=== PATIENT | male | born 1940 | race Caucasian/White ===

== ENCOUNTER 2023-02-10 10:33 | Outpatient (AMB) | payer MEDICARE, SELFPAY ==
--- NOTE | 2023-02-10 10:47 | A.SPINEOV_ITS ---
Intake Intake Visit Reasons: back pain Intake Note: Mr. Winkler is here today c/o Right-sided low back pain starting at right buttock radiating down right leg. MRI done @ [facility]/brought disc. Health Data Analyst Required: No Assessment & Plan Assessment & Plan (1) Lumbar stenosis with neurogenic claudication: Code(s): M48.062 - Spinal stenosis, lumbar region with neurogenic claudication Plan Dear colleague Thank you for referring Shahbaz Winkler to the office today with a chief complaint of right leg pain. HPI: This 82-year-old male developed severe, right-sided, radiating pain to his hip down his posterior thigh with walking several months ago. Symptom was debilitating. He constantly has to sit down or lean forward on a shopping cart. Currently, the symptoms have improved in the sense that he is able to walk for longer distances before the symptoms starts. He denies weakness or numbness. He completed a course of physical therapy and was evaluated by Dr. Forrester, who referred him to my office. 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 Nonsmoker Physical Exam: Pleasant male. He is able to ambulate without difficulties. Neurological exam is intact for motor, sensation and reflexes. Straight leg raise is negative bilaterally. Radiological Studies: MRI done at [facility] shows a mild degenerative scoliosis and severe lateral recess stenosis L3-4 compressing the right L4 nerve root. A standing x-ray today confirms the lumbar degenerative scoliosis with the apex at L2-3. 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 Impression/Plan: This patient is suffering from unilateral neurogenic claudication on the right side due to L3-4 lateral recess stenosis. We dis cussed an L3-4 hemilaminotomy to treat his symptoms. He is interested but 1st wanted to complete further conservative management. Therefore I referred him to for an epidural steroid injection. I will follow-up in 3-6 weeks after the injection. Thank you for allowing me to participate in your patients care. total time spent was 50 minutes in counseling ,coordination of plan, personal review of imaging, surgical decision making and subsequent plan Dawson Velazquez MD, PhD Spine Fellowship Trained Neurosurgeon Director, [facility] Orders: Orders XR lumbar spine 4V min Today M48.062 - Spinal stenosis, lumbar region with neurogenic claudication Referrals Physiatry Referral M48.062 - Spinal stenosis, lumbar region with neurogenic claudication Coding Level of Care Code New Pt Level 4 (86234) Diagnoses Lumbar stenosis with neurogenic claudication M48.062
== END 2023-02-10 11:55 | disposition home or self-care (01) ==
PROVIDERS: PCP Internal Medicine; Visit Provider Neurological Surgery
DX: M48.062 Spinal stenosis, lumbar region with neurogenic claudication (principal)
CPT/HCPCS: 99204

== ENCOUNTER 2023-02-10 10:33 | Outpatient (REF) | payer MEDICARE, SELFPAY ==
--- NOTE | ~2023-02-10 | XR_ITS ---
EXAMINATION: XR LUMBOSACRAL SPINE WITH OBLIQUES CLINICAL INFORMATION: Neurogenic claudication COMPARISON: None available. TECHNIQUE: 4 views of the lumbar spine FINDINGS: No acute visible fracture or dislocation. Grade 1 retrolisthesis of L1 and L2 and L2 on L3, slightly increased on extension views. Multilevel degenerative changes. Vertebral body heights and disc spaces are maintained. Posterior elements are intact. Paraspinal soft tissues are unremarkable. Bowel gas is unremarkable. XR/XR lumbar spine 4V min IMPRESSION: 1. No acute visible fracture or dislocation. 2. Grade 1 retrolisthesis of L1 and L2 and L2 on L3, slightly increased on extension views. 3. Multilevel degenerative changes.
== END 2023-02-10 10:34 | disposition home or self-care (01) ==
LOC: HO.HOSX 10:33
PROVIDERS: PCP Internal Medicine; Visit Provider Neurological Surgery
DX: M48.062 Spinal stenosis, lumbar region with neurogenic claudication (principal)
CPT/HCPCS: 72110; 99202

== ENCOUNTER 2023-04-28 11:10 | Outpatient (AMB) | payer MEDICARE, SELFPAY ==
--- NOTE | 2023-04-28 11:16 | A.OFFVIS_ITS ---
Intake Intake Visit Reasons: 6 week f/u after referral Manager Shell Required: No Assessment & Plan Assessment & Plan (1) Lumbar stenosis with neurogenic claudication: Code(s): M48.062 - Spinal stenosis, lumbar region with neurogenic claudication Plan Dear colleague, On 04/28/2023, I saw for follow-up Shahbaz Winkler. He suffering from neurogenic claudication. We decided to refer him for an injection before consideration a right L3-4 hemilaminotomy. The injection provided great relief but he continues to have a pain in his buttock with walking and standing. I advised him to request a 2nd injection and if this does not do the trick to come back to my office to discuss a surgical decompression of the nerve root. Thank you for allowing me take care of your patient. Dawson Velazquez MD, PhD Spine Fellowship Trained Neurosurgeon Director, [facility] Coding Level of Care Code Est Pt Level 3 (26521) Diagnoses Lumbar stenosis with neurogenic claudication M48.062
== END 2023-04-28 12:16 | disposition home or self-care (01) ==
PROVIDERS: PCP Internal Medicine; Visit Provider Neurological Surgery
DX: M48.062 Spinal stenosis, lumbar region with neurogenic claudication (principal)
CPT/HCPCS: 99213

== ENCOUNTER → 2023-04-28 11:10 | Outpatient (BNVA) | payer MEDICARE, SELFPAY | PROVIDERS: PCP Internal Medicine; Visit Provider Neurological Surgery | DX: M48.062 Spinal stenosis, lumbar region with neurogenic claudication (principal) | CPT/HCPCS: 99212 ==

== ENCOUNTER 2023-06-30 13:12 | Outpatient (AMB) | payer MEDICARE, SELFPAY ==
--- NOTE | 2023-06-30 13:32 | HO.SPINEOV ---
Intake Intake Visit Reasons: back pain Intake Note: Mr. Winkler is here today c/o back pain Top Cleaner Required: No Assessment & Plan Assessment & Plan (1) Lumbar stenosis with neurogenic claudication: Code(s): M48.062 - Spinal stenosis, lumbar region with neurogenic claudication Plan Dear colleague, On June 30, 2023 I saw for follow-up Shahbaz Winkler. He is 82-year-old male who suffering from unilateral neurogenic claudication due to L3-4 lateral recess stenosis. I refer for details to my previous note. The epidural steroid injection wore off and the symptoms of right leg pain with walking and standing returned. Where an extensive discussion about surgery, being a right hemilaminotomy and expected postoperative course. This surgery is planned for 08/19/2023. He has getting a preoperative clearance tomorrow. He will see for another injection to hold him over until the surgical date. I spent 35 minutes in his consult to discuss the surgical plan. Thank you for letting me take care of your patient. Dawson Velazquez MD, PhD Spine Fellowship Trained Neurosurgeon Director, [facility] Coding Level of Care Code Est Pt Level 4 (26149) Diagnoses Lumbar stenosis with neurogenic claudication M48.062
== END 2023-06-30 14:23 | disposition home or self-care (01) ==
PROVIDERS: PCP Internal Medicine; Visit Provider Neurological Surgery
DX: M48.062 Spinal stenosis, lumbar region with neurogenic claudication (principal)
CPT/HCPCS: 99214

== ENCOUNTER → 2023-06-30 13:12 | Outpatient (BNVA) | payer MEDICARE, SELFPAY | PROVIDERS: PCP Internal Medicine; Visit Provider Neurological Surgery | DX: M48.062 Spinal stenosis, lumbar region with neurogenic claudication (principal) | CPT/HCPCS: 99212 ==

== ENCOUNTER 2023-08-19 09:15 | Day surgery (SDC) | payer MEDICARE, SELFPAY ==
[2023-08-05 13:13] VITALS: BP 136/77; PULSE 98; RESP 16; O2SAT 97; BMI 32.9
--- NOTE | 2023-08-05 13:35 | HO.ANESPROP2 ---
Documented by User: Mallorie Perez NP 08/16/23 15:17 HPI - Anesthesia Eval Consult details Narrative: 82yo M for Right L3-4 Lumbar decompression, 08/19/23 Medically optimized No recent illness No CP/SOB with limited activity DM. Does not check blood sugar at home. PMFSH Active Problems Active Problems: All Active Problems Lumbar stenosis with neurogenic claudication (Acute) Past Medical History Medical History Hx of squamous cell carcinoma Arthritis [place] (hard of hearing) Imbalance Peripheral neuropathy H/O macrocytosis Hx of Lyme disease (~2005) Diabetes Elevated cholesterol HTN (hypertension) Back pain History of trigger finger Family History Family history of problems with anesthesia: No Surgical History Surgical History Hx of colonoscopy Hx of Achilles tendon repair Hx of cataract extraction Hx of total knee replacement History of Problems with Anesthesia: No Social History Social History Are you a primary childcare center administrator to a significant other at home: No Do you presently have visiting nurse or other home services: No Patient Tobacco Use Status: Former Tobacco user Quit Date: Tobacco use type: Cigarette Use of substances other than those prescribed or required for medical reasons: No Have you been hit, kicked, punched, or otherwise hurt by someone within the past year? If so, by whom?: No Are you DNR?: No Advance Directives: No Advance Directives Information Provided: Yes Advance Directives on File: No Nutrition Risks: Surgical patient >75years Poor oral hygiene: No Meds Allergies Allergy/AdvReac Type Severity Reaction Status Date / Time No Known Allergies Allergy Verified 08/05/23 13:13 Home Medications ?Medication ?Instructions ?Recorded ?Confirmed ?Last Taken ?Type amlodipine 5 mg tablet 5 mg PO BEDTIME 08/04/23 08/05/23 08/18/23 History atorvastatin 80 mg tablet 80 mg PO DAILY 08/04/23 08/04/23 08/18/23 History cyanocobalamin 1,000 1 tab PO DAILY 08/04/23 08/05/23 08/18/23 History mcg-salcaprozate sodium 100 mg tablet ezetimibe 10 mg tablet 10 mg PO DAILY 08/04/23 08/04/23 08/18/23 History metformin 500 mg tablet,extended 2,000 mg PO DAILY 08/04/23 08/05/23 08/18/23 History release 24 hr pioglitazone 30 mg tablet 30 mg PO DAILY 08/04/23 08/04/23 08/18/23 History vitamin B complex 1 tab PO DAILY 08/04/23 08/04/23 08/18/23 History acetaminophen 500 mg tablet 1,000 mg PO Q6H PRN Pain 08/05/23 08/05/23 08/18/23 History cholecalciferol (vitamin D3) 50 50 mcg PO DAILY 08/05/23 08/05/23 08/18/23 History mcg (2,000 unit) capsule (Vitamin D3) Exam Height,Weight and Vital Signs: Height 5 ft 9.5 in Weight 102.512 kg Last Vital Signs Pulse 98 08/05/23 13:13 Resp 16 08/05/23 13:13 BP 136/77 08/05/23 13:13 Pulse Ox 97 08/05/23 13:13 O2 Del Method Room Air 08/05/23 13:13 Pertinent Lab Results Pertinent Lab Results: CBC and BMP 07/2023 from outside facility WNL Narrative Narrative: EKG 06/2023 SR with SA with 1st deg AV block @ 65 Airway Mallampati Class: III TM Dist: >3cm Neck ROM: Full Loose/Missing/Broken Teeth: Yes (Molar pulled, crowned molar stable) Heart: RRR Lungs: CTAB Assessment and Plan Assessment Anesthesia Assessment: Anesthesia Plan Discussed and PAT Visit Final Anesthetic Review Family History of Problems with Anesthesia: No History of Problems with Anesthesia: No Documented by User: Zina Baig MD 08/19/23 11:04 [facility] Active Problems Active Problems: All Active Problems Lumbar stenosis with neurogenic claudication (Acute) H/o [place]. Has not used CPAP machine for years. States does not snore anymore NIDDM HTN Hypercholesterolemia [place] Increased BMI Past Medical History Medical History Hx of squamous cell carcinoma Arthritis [place] (hard of hearing) Imbalance Peripheral neuropathy H/O macrocytosis Hx of Lyme disease (~2005) Diabetes Elevated cholesterol HTN (hypertension) Back pain History of trigger finger Family History Family history of problems with anesthesia: No Surgical History Surgical History Hx of colonoscopy Hx of Achilles tendon repair Hx of cataract extraction Hx of total knee replacement History of Problems with Anesthesia: No Social History Social History Are you a primary childcare center administrator to a significant other at home: No Do you presently have visiting nurse or other home services: No Patient Tobacco Use Status: Former Tobacco user Quit Date: Tobacco use type: Cigarette Use of substances other than those prescribed or required for medical reasons: No Have you been hit, kicked, punched, or otherwise hurt by someone within the past year? If so, by whom?: No Are you DNR?: No Advance Directives: No Advance Directives Information Provided: Yes Advance Directives on File: No Nutrition Risks: Surgical patient >75years Poor oral hygiene: No Meds Allergies Allergy/AdvReac Type Severity Reaction Status Date / Time No Known Allergies Allergy Verified 08/05/23 13:13 Home Medications ?Medication ?Instructions ?Recorded ?Confirmed ?Last Taken ?Type amlodipine 5 mg tablet 5 mg PO BEDTIME 08/04/23 08/05/23 08/18/23 History atorvastatin 80 mg tablet 80 mg PO DAILY 08/04/23 08/04/23 08/18/23 History cyanocobalamin 1,000 1 tab PO DAILY 08/04/23 08/05/23 08/18/23 History mcg-salcaprozate sodium 100 mg tablet ezetimibe 10 mg tablet 10 mg PO DAILY 08/04/23 08/04/23 08/18/23 History metformin 500 mg tablet,extended 2,000 mg PO DAILY 08/04/23 08/05/23 08/18/23 History release 24 hr pioglitazone 30 mg tablet 30 mg PO DAILY 08/04/23 08/04/23 08/18/23 History vitamin B complex 1 tab PO DAILY 08/04/23 08/04/23 08/18/23 History acetaminophen 500 mg tablet 1,000 mg PO Q6H PRN Pain 08/05/23 08/05/23 08/18/23 History cholecalciferol (vitamin D3) 50 50 mcg PO DAILY 08/05/23 08/05/23 08/18/23 History mcg (2,000 unit) capsule (Vitamin D3) Exam Height,Weight and Vital Signs: Height 5 ft 9.5 in Weight 102.512 kg Last Vital Signs Pulse 98 08/05/23 13:13 Resp 16 08/05/23 13:13 BP 136/77 08/05/23 13:13 Pulse Ox 97 08/05/23 13:13 O2 Del Method Room Air 08/05/23 13:13 Vital Signs Temp Pulse Resp BP Pulse Ox O2 Del Method 08/19/23 09:18 97.3 F 82 19 142/87 H 95 Room Air Pertinent Lab Results Pertinent Lab Results: CBC and BMP 07/2023 from outside facility WNL Lab Results 08/19/23 Range/Units 10:48 POC Glucose 169 H (60-115) mg/dL Airway Mallampati Class: III TM Dist: >3cm Neck ROM: Full Loose/Missing/Broken Teeth: No Assessment and Plan Assessment Anesthesia Assessment: Anesthesia Plan Discussed, PAT Visit and Chart Reviewed Final Anesthetic Review Family History of Problems with Anesthesia: No History of Problems with Anesthesia: No NPO: Yes ASA Class: III Final Preanesthetic Review: No Changes in Pt Med Stat, Meds/Allgs Chart Reviewed, Consent Obtained/Reviewed and Anes Risks/Benef Reviewed Patient Risk: Intermediate Procedure Risk: Low Assessment/Block/Sedation in SS: Assess/Block/Sedation-SS Anesthetic Plan Anesthetic Plan: GA Disposition: Standard PACU
[2023-08-19] VITALS (10 sets, daily range): BP systolic 125–152; BP diastolic 63–88; PULSE 54–82; RESP 12–19; TEMP 36.2–36.3; O2SAT 82–95
--- NOTE | ~2023-08-19 | FL_ITS ---
EXAMINATION: XR FLUOROSCOPY WITH IMAGES CLINICAL INFORMATION: L3-L4 lumbar decompression. COMPARISON: Lumbar spine radiographs 02/10/2023. TECHNIQUE: Fluoroscopy Supervised By: Dr. Velazquez. Fluoroscopy Time: Less than 1 min. Cumulative Dose: 6.75 mGy. DAP: 1.44 Gycm2. Images: 1. FINDINGS: Intraoperative fluoroscopy and spot films were performed during a procedure in the OR. A probe is seen at the L3-L4 level. Please see Dr. Velazquez' report for complete details. FL/FL guidance in OR IMPRESSION: Intraoperative fluoroscopy and spot films were obtained. Please see Dr. Velazquez' report for complete details.
--- NOTE | 2023-08-19 07:04 | MHC.SHP ---
Pre-Procedural Eval Section A - 24 Hr Update-Section A only Date of Service: 08/19/23 The patient is an INPATIENT: No Changes since office visit: No Cold of Flu in the past 2 weeks, No New Medical Problems, No Changes in Medication and No Patient answered all questions The patient has been examined within 24 hours of the surgical procedure. The History & Physical has been completed within 30 days and I have reviewed it.: No Section B - Complete if H&P > 30 days Chief Complaint: Spinal stenosis, lumbar region with neurogenic Allergies: Allergies Allergy/AdvReac Type Severity Reaction Status Date / Time No Known Allergies Allergy Verified 08/05/23 13:13 Review of Systems Sugical H&P ROS: Negative: Constitution, Cardiovascular, Respiratory, Neurological, Psychiatric, Hem-Onc, Allergic/Immunologic, Gastrointestinal, Genitourinary, Musculoskeletal, Integumentary, Endocrine and Eyes/Ears/Nose/Throat Exam Surgical H&P Exam: Not Evaluated: HEENT, Not Evaluated: Heart, Not Evaluated: Lungs, Not Evaluated: Extremities, Not Evaluated: Abdomen, Not Evaluated: Skin and Not Evaluated: Neurological Plan Diagnosis/Plan: Unchanged right L3-4 hemilaminotomy Time Spent With Patient Time: Total time managing care of this patient today _4___ minutes.
[2023-08-19] MEDS: methocarbamoL 750 MG TABLET PO (09:38)
[2023-08-19] MEDS: Gabapentin 300 MG CAPSULE PO (09:38)
[2023-08-19] MEDS: Lactated Ringers 1,000 ML 100 ML IVCONT (09:38)
[2023-08-19 10:52] LABS: Glucose, Whole Blood 169 mg/dL (60-115)
--- NOTE | 2023-08-19 13:26 | P.OP_ITS ---
Operative Note Operative Note Date of Service: 08/19/23 Narrative: [address] [address] Operative Note Signed Patient: Karmen Caraballo MR#: [id number] : 05/20/1955 Acct:[id number] Age/Sex: 68 / F Loc: .[facility] Preoperative Diagnosis: Right L3-L4 Spinal stenosis/lateral recess stenosis/neural foraminal stenosis Operation: Right L3-L4 Laminotomy, Partial facetectomy and foraminotomy with use of microscope Consent Informed Consent was obtained for this operation. I have explained the nature, purpose and benefits of the operation. I have discussed the risks and benefit of the operation including possible complications or adverse events with patient/family. Alternative(s) were discussed with the patient with their relative benefits and risks as well as the consequences of not accepting the operation were included in obtaining consent. Surgeon: DALJIT KNIGHT MD, PHD Procedure Assisted By: ERIK Vasquez. Description of Procedure This patient is suffering from a right L4 radiculopathy due to an L3-4 lateral recess stenosis. The patient was offered a decompression of the nervous structures. The procedure complications were explained. The patient was consented. The patient was brought to the operating room and endotracheally intubated. The patient was turned in prone position on the Jonah frame. Prep and drape was done followed by timeout. Physician chemist assistant provided access. A mid lumbar incision was made followed by release of the paravertebral muscle on the right side to expose the right L3-4 lamina and facet joint. An intraoperative x-ray was obtained to confirm the correct level. The microscope was brought in. I took over the procedure. The high-speed drill was used to do a right L3-4 laminotomy. The flavum ligament was opened. The underlying L4 nerve root was identified as origin and followed along the medial off the pedicle into the foramen and was decompressed over its trajectory. Good pulsations were seen at the end of the decompression. Hemostasis was done. The microscope was removed. Hemostasis was done. Incision was closed in 2 layers. Steri-Strips were used to approximate incision. An OpSite with Tegaderm was used to cover the incision. All sponge needle counts were correct. Patient was extubated and transported in stable is to recovery room. Anesthesia: General Estimated Blood Loss (ml): Minimal Duration of Surgery: Under 40 Minutes Postoperative Plan: Discharge to home
--- NOTE | 2023-08-19 13:38 | P.DS_ITS ---
DS: Providers Provider Date of Service: 08/19/23 Primary care physician: Carlos Wheatley MD DS: Summary Time Attestation Discharge Coordination Time (in mins): 15 Quality: Safe Use of Opioids Does Pt have an Active Cancer Diagnosis on the Problem List?: No Quality: Stroke Does the patient have a stroke diagnosis?: No Physical Exam Vital Signs: Vital Signs: Last Vital Signs Temp 97.3 F 08/19/23 09:18 Pulse 82 08/19/23 09:18 Resp 19 08/19/23 09:18 BP 142/87 H 08/19/23 09:18 Pulse Ox 95 08/19/23 09:18 O2 Del Method Room Air 08/19/23 09:18 BMI result Body Mass Index 32.9 DS: Data Data Completed and Pending Labs on day of discharge: Laboratory Results - last 24 hr 08/19/23 10:48 POC Glucose 169 H Discharge Plan Discharge Patient Disposition: Home, Self-Care Referrals: Carlos hWeatley MD [Primary Care Provider] - 1 Week Discharge Medications: New oxycodone 5 mg tablet 5 mg PO Q6H PRN (Reason: severe pain (scale score 7-10)) Qty: 30 0RF Rx Instructions: Partial Fill upon patient request. Continued atorvastatin 80 mg tablet 80 mg PO DAILY vitamin B complex Tablet Extended Release 1 tab PO DAILY amlodipine 5 mg tablet 5 mg PO BEDTIME pioglitazone 30 mg tablet 30 mg PO DAILY metformin 500 mg tablet extended release 24 hr 2,000 mg PO DAILY ezetimibe 10 mg tablet 10 mg PO DAILY cyanocobalamin-salcaprozat sod 1,000-100 mcg-mg Tablet 1 tab PO DAILY acetaminophen 500 mg Tablet 1,000 mg PO Q6H PRN (Reason: Pain) cholecalciferol (vitamin D3) [Vitamin D3] 50 mcg (2,000 unit) Capsule 50 mcg PO DAILY Discharge Orders: Discharge Order (Routine); Ordered 08/19/23 Ordered By: Yuri Payne Diet: Advance to usual diet Activity on Discharge: As tolerated Activity Restrictions/Additional Instructions: After your spinal surgery we ask you to observe the following restrictions/guidelines: Activity: It is normal to feel some discomfort as you increase your activity, but that will improve with time. We ask you avoid heavy lifting or acitivities that cause pain. As a general rule, 8lbs is a safe limit for lifting right after surgery. Walk as much as you feel comfortable but not to exhaustion. You will feel extra tired the first few days after surgery. Stay well hydrated. It is OK to walk up and down stairs You may return to driving when you are off narcotics (such as vicodin, oxycodone, dilaudid, etc), and you are back to normal functional capacity. If you have any concerns please check with office before driving. Return to work is specific to each patient and each surgery, so please speak with your doctor/PA at first follow up. Please bring paperwork such as FMLA at that time if you need it filled out. Medications: We will give you a short supply of narcotics after surgery (usually one weeks worth). If you need more please call the office but do not use more than prescribed. You will need to give our office 48 hours notice if you need narcotics refilled and we do not fill narcotics on weekends or evenings. If you are on a narcotic, it is a good idea to take a stool softener such as colace or senna to avoid constipation If you take blood thinner such as aspirin, Plavix, Coumadin, Effient, Eliquis etc for conditions such as Afib, DVT, Pulmonary embolus, coronary disease, stents etc please speak with your surgeon about specific details as to when you can resume these medications. You can resume NSAIDs on post op day 1 (eg: Motrin, Naproxen, etc). Follow up: Please call the office, , after surgery to arrange a 3 week follow up for wound check. Wound Care: You may remove your dressing on the first day after surgery. ?You may ?leave open to air. Please do not remove the steri strips underneath. they will fall off on their own in one week. IT IS NORMAL FOR THE WOUND TO OOZE OR BE BLOODY FOR A FEW DAYS AFTER SURGERY. ?IF THIS HAPPENS JUST PLACE NEW DRESSING OVER IT TO AVOID STAINING CLOTHES. You may shower on post op day # 1 We ask that you do not let the water soak the wound. If it does get wet, just towel dry lightly. Please do not scrub your incision or place any type of chemical/ointment on the wound. No tub baths, pools or jacuzzis for one month. If you have any leaking or redness from your wound, or fevers, please call the office. Print Language: Kazakh
[2023-08-19] MEDS: fentaNYL citrate/PF 100 MCG/2 ML VIAL 25 MCG IVPUSH (14:50)
== END 2023-08-19 15:35 | disposition home or self-care (01) ==
PROVIDERS: PCP Internal Medicine; Visit Provider Neurological Surgery
PROC: (CPT 63047; principal; 2023-08-19 12:00)
DX: M48.062 Spinal stenosis, lumbar region with neurogenic claudication (principal); I10 Essential (primary) hypertension; G62.9 Polyneuropathy, unspecified; R26.89 Other abnormalities of gait and mobility; D75.89 Other specified diseases of blood and blood-forming organs; E11.9 Type 2 diabetes mellitus without complications; H91.93 Unspecified hearing loss, bilateral; Z79.84 Long term (current) use of oral hypoglycemic drugs; Z87.891 Personal history of nicotine dependence
CPT/HCPCS: 63047; 82947; J0131; J0690; J1100; J1596; J1885; J2250; J2405; J2704; J3010

== ENCOUNTER → 2023-08-19 09:15 | Outpatient (BNV) | payer MEDICARE, SELFPAY | PROVIDERS: PCP Internal Medicine; Visit Provider Neurological Surgery | DX: M48.062 Spinal stenosis, lumbar region with neurogenic claudication (principal) | CPT/HCPCS: 63047; 99499 ==

== ENCOUNTER 2023-09-09 09:53 | Outpatient (AMB) | payer MEDICARE, SELFPAY ==
--- NOTE | 2023-09-09 10:04 | HO.SPINEOV ---
Intake Visit Reasons: 1st post op Intake Note: Mr. Winkler is here today for his 1st post-op appointment. Petroleum Supply Specialist Required: No Allergies No Known Allergies Allergy (Verified 09/09/23 10:04) Assessment & Plan Assessment & Plan (1) Lumbar stenosis with neurogenic claudication: Code(s): M48.062 - Spinal stenosis, lumbar region with neurogenic claudication Category: Medical Plan Procedure: Right L3-L4 Laminotomy, Partial facetectomy and foraminotomy Shahbaz comes in today for his 1st postoperative visit. He reports he is very satisfied with the surgery and feels much better than he did preoperatively. The patient reports he is up walking around and completing the majority of his ADLs. He reports that he no longer suffers from his right-sided shooting radiculopathy. He still reports mild low back pain, with good relief with OTC pain medication. No new neurological deficits. Patient is able to ambulate well, with assistance of a cane rises from a seated position without difficulty. Posterior incision site is closed, well healing, with no signs of drainage. We will follow-up with the patient in 6 weeks for their 2nd postoperative visit. Yuri Velazquez MD,PhD [facility] Coding Level of Care Code Global (75194) Diagnoses Lumbar stenosis with neurogenic claudication M48.062
== END 2023-09-09 10:29 | disposition home or self-care (01) ==
PROVIDERS: PCP Internal Medicine; Visit Provider Physician Assistant
DX: M48.062 Spinal stenosis, lumbar region with neurogenic claudication (principal)
CPT/HCPCS: 99024

== ENCOUNTER → 2023-09-09 09:53 | Outpatient (BNVA) | payer MEDICARE, SELFPAY | PROVIDERS: PCP Internal Medicine; Visit Provider Physician Assistant | DX: Z48.89 Encounter for other specified surgical aftercare (principal) | CPT/HCPCS: 99212 ==

== ENCOUNTER 2023-10-25 11:30 | Outpatient (AMB) | payer MEDICARE, SELFPAY ==
--- NOTE | 2023-10-25 11:34 | HO.SPINEOV ---
Intake Visit Reasons: 2nd post op Intake Note: Mr. Winkler is here today for his 2nd post op visit Dictaphone Technician Required: No Allergies No Known Allergies Allergy (Verified 09/09/23 10:04) Assessment & Plan Assessment & Plan (1) Lumbar stenosis with neurogenic claudication: Code(s): M48.062 - Spinal stenosis, lumbar region with neurogenic claudication Category: Medical Plan: Operation: Right L3-L4 Laminotomy, Partial facetectomy and foraminotomy Shahbaz comes in today for a postoperative follow-up visit after having a L3-4 lumbar decompression completed on 08/19/2023. Unfortunately he continues to report low back pain, lumbar radiculopathy into his right hip and right posterior thigh, and neurogenic claudication. He states that there are times throughout the day where he has 0 pain, then he will try to ambulate somewhere and have severe pain exacerbations into his right posterior thigh. Today he ambulates with the use of a cane, which he did admit he was using prior to the surgery. He also states that he has to hold himself up on a grocery cart to get around the store, which he also admits he had to do prior to surgery. He is very concerned that he feels his symptoms have stayed the same with little to no improvement since his surgery. 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 No new neurological deficits. The patient ambulates with the assistance of a cane. His posterior incision site appears closed and well healed. I sent Shahbaz for a repeat set of x-rays, and discussed the possibility of subsequent surgical interventions to resolve his reported pain. I am not sure if Dr. Velazquez was willing to offer him any other surgery if more conservative treatments failed. many times we do treat degenerative scoliosis with lumbar fusion, however as stated above the patient is auto fused at the superior segment, and there is evidence of significant osteophyte growth on x-ray imaging. I would like him to follow up with Dr. Velazquez regarding. Yuri Velazquez MD,PhD [facility] Orders: Orders XR lumbar spine 4V min Today M48.062 - Spinal stenosis, lumbar region with neurogenic claudication Coding Level of Care Code Global (67692) Diagnoses Lumbar stenosis with neurogenic claudication M48.062
== END 2023-10-25 12:03 | disposition home or self-care (01) ==
PROVIDERS: PCP Internal Medicine; Visit Provider Physician Assistant
DX: M48.062 Spinal stenosis, lumbar region with neurogenic claudication (principal)
CPT/HCPCS: 99024

== ENCOUNTER 2023-10-25 11:30 | Outpatient (REF) | payer MEDICARE, SELFPAY ==
--- NOTE | ~2023-10-25 | XR_ITS ---
EXAMINATION: XR LUMBAR SPINE CLINICAL INFORMATION: Reason for Exam M48.062 - Spinal stenosis, lumbar region with neurogenic claudication COMPARISON: 2022 TECHNIQUE: Frontal lateral and coned-down L5-S1 frontal lateral, flexion and extension, 4 views FINDINGS: Five [id number] lumbar vertebrae were identified maintaining normal height, mild dextroscoliosis, mild grade 1 posterior spondylolisthesis of L2 on L3 and L3 on L4.. Loss of disc height and developed large osteophyte from the endplates suggests underlying severe degenerative disc disease. Paravertebral soft tissues are unremarkable. There are radiolucencies, most likely superimposed bowel gas.. No radiographic evidence of osteolytic or osteoblastic lesions. XR/XR lumbar spine 4V min IMPRESSION: * Progression of severe Degenerative disc disease, mild dextroscoliosis. * Mild grade 1 posterior spondylolisthesis of L2 on L3 and L3 on L4. * No fracture.
== END 2023-10-25 11:31 | disposition home or self-care (01) ==
LOC: HO.HOSX 11:30
PROVIDERS: PCP Internal Medicine; Visit Provider Physician Assistant
DX: M48.062 Spinal stenosis, lumbar region with neurogenic claudication (principal)
CPT/HCPCS: 72110; 99212

== ENCOUNTER 2023-12-01 15:03 | Outpatient (AMB) | payer MEDICARE, SELFPAY ==
--- NOTE | 2023-12-01 15:05 | HO.SPINEOV ---
Intake Visit Reasons: discuss possible future sx Intake Note: Mr. Winkler is here today to Discuss Surgery. Informatics Application Analyst Required: No Allergies No Known Allergies Allergy (Verified 12/01/23 15:07) Assessment & Plan Assessment & Plan (1) Left hip pain: Code(s): M25.552 - Pain in left hip Category: Medical Plan: Dear colleague, On 12/01/2023 I saw Shahbaz Winkler. He is status post L3-4 lumbar decompression for right-sided neurogenic claudication in August of 2023. Unfortunately, he reports no improvement. Another complaint today is left-sided hip pain which has been going on for longer time. On exam: Hip exam reveals mild left hip pain. No neurological deficits. An x-ray of the left hip is unremarkable. In summary, the patient continues to complain of neurogenic claudication despite decompression. I would like to repeat an MRI of the lumbar spine and follow-up to determine if there is a persistent surgical cause for his ongoing symptoms. I spent 25 minutes in his consult to review imaging and discussing plan of care. Thank you for allowing me take care of your patient. Dawson Velazquez MD, PhD Sp[facility] Trained Neurosurgeon Director, [facility] (2) Lumbar stenosis with neurogenic claudication: Code(s): M48.062 - Spinal stenosis, lumbar region with neurogenic claudication Category: Medical Plan: d Plan s Orders: Orders XR hip LT min 2V Today M25.552 - Pain in left hip MR lumbar spine wo/w con Today M48.062 - Spinal stenosis, lumbar region with neurogenic claudication Coding Level of Care Code Est Pt Level 3 (23420) Diagnoses Left hip pain M25.552 Lumbar stenosis with neurogenic claudication M48.062
== END 2023-12-01 15:53 | disposition home or self-care (01) ==
PROVIDERS: PCP Internal Medicine; Visit Provider Neurological Surgery
DX: M25.552 Pain in left hip (principal); M48.062 Spinal stenosis, lumbar region with neurogenic claudication
CPT/HCPCS: 99213

== ENCOUNTER 2023-12-01 15:03 | Outpatient (REF) | payer MEDICARE, SELFPAY ==
--- NOTE | ~2023-12-01 | XR_ITS ---
EXAMINATION: XR HIP, LEFT CLINICAL INFORMATION: Pain in the left hip. COMPARISON: None available. TECHNIQUE: AP and frog-leg lateral views of the left hip. FINDINGS: Moderate osteoarthritis in the left hip with cephalad joint space narrowing, marginal osteophytes, articular cortical irregularity, and articular sclerosis. Enthesopathic spurring at the left greater trochanter and ischium. No fractures. Alignment is appropriate. Atherosclerotic calcifications in the femoral arteries. 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 No acute osseous findings. Electronically signed by: Rusty Navarro MD 12/26/2023 10:38 AM EDT
== END 2023-12-01 15:04 | disposition home or self-care (01) ==
LOC: HO.HOSX 15:03
PROVIDERS: PCP Internal Medicine; Visit Provider Neurological Surgery
DX: M25.552 Pain in left hip (principal); M48.062 Spinal stenosis, lumbar region with neurogenic claudication
CPT/HCPCS: 73502; 99212

== ENCOUNTER 2023-12-24 15:19 | Outpatient (AMB) | payer MEDICARE, SELFPAY ==
--- NOTE | 2023-12-24 15:20 | HO.SPINEOV ---
Intake Visit Reasons: Discuss MRI results Intake Note: Mr. Winkler is here today to Discuss the results to his MRI. Graining Press Operator Required: No Allergies No Known Allergies Allergy (Verified 12/01/23 15:07) Assessment & Plan Assessment & Plan (1) Scoliosis of lumbar region due to degenerative disease of spine in adult: Code(s): M41.56 - Other secondary scoliosis, lumbar region Category: Medical (2) Lumbar stenosis with neurogenic claudication: Code(s): M48.062 - Spinal stenosis, lumbar region with neurogenic claudication Category: Medical Plan Dear colleague, On 12 24 2023, I saw for follow-up Shahbaz Winkler to discuss his MRI results. As you know he is status post L3-4 lumbar decompression but unfortunately he reported ongoing symptoms. The new MRI shows a good decompression at the surgical site. There is the ongoing degenerative scoliosis L2-3 and L3-4. I told the patient that a minimally invasive correction of the degenerative scoliosis could cure the remaining symptom. I wish I could guarantee him that this would be a definite solution but I can not. He is well aware of this and he decided not to proceed with anymore surgery. I gave him referral for physical therapy. He will returned to my office if new or more symptoms occur. Thank you for allowing me take care of the patient. Dawson Velazquez MD, PhD Spine Fellowship Trained Neurosurgeon Director, [facility] [place] [facility] Orders: Orders PT Evaluation and Treatment Today M41.56 - Other secondary scoliosis, lumbar region, M48.062 - Spinal stenosis, lumbar region with neurogenic claudication Coding Level of Care Code Est Pt Level 2 (05315) Diagnoses Scoliosis of lumbar region due to degenerative disease of spine in adult M41.56 Lumbar stenosis with neurogenic claudication M48.062
== END 2023-12-24 16:55 | disposition home or self-care (01) ==
PROVIDERS: PCP Internal Medicine; Visit Provider Neurological Surgery
DX: M41.56 Other secondary scoliosis, lumbar region (principal); M48.062 Spinal stenosis, lumbar region with neurogenic claudication
CPT/HCPCS: 99212

== ENCOUNTER → 2023-12-24 15:19 | Outpatient (BNVA) | payer MEDICARE, SELFPAY | PROVIDERS: PCP Internal Medicine; Visit Provider Neurological Surgery | DX: M48.062 Spinal stenosis, lumbar region with neurogenic claudication (principal); M41.56 Other secondary scoliosis, lumbar region | CPT/HCPCS: 99212 ==

== ENCOUNTER 2024-03-14 12:57 | Outpatient (RCR) | payer MEDICARE, SELFPAY ==
--- NOTE | 2024-01-12 13:39 | MHC.PT.EP ---
[facility] [place] Office [place] Office [place] Office [address] Mayelin Oconnell [address] [phone] F: [phone] F: [phone] F: [phone] F: [phone] Physical Therapy Plan of Care Date of Evaluation: 01/12/24 Date of Surgery: 08/19/23 Diagnosis: SPINAL STENOSIS WITH NEUROGENIC CLAUDICATION Assessment: Pt IS 83 YO M S/P MIN INVASIVE BACK SURGERY (L3-4 LUMBAR DECOMPRESSION) 08/19/23. REPORTS NO SIGNIF IMPROVEMENT IN BACK PAIN AFTER (BUT REPORTS SOME IMPROVEMENT SINCE STARTING ACUPUNCTURE). HAS C/O L AND R LBP (OF NOTE ARTHRITIS L HIP). PRESENTS TO PT WITH ANTALGIC (TRANDELENBERG) GT PATTERN (L GLUT WEAKNESS) POOR ABILITY TO ENGAGE ABDOMINAL MMS (BULGE NOTED WITH ATTEMPT AT ABDOMINAL BRACING. SHOULD BENEFIT FROM PT TO ADDRESS THESE ISSUES Frequency and Duration: The patient will be seen 2X/WK X 4 WKS THEN 1X/WK X 4 WKS Short Term Goals: 1. INCREASED AWARENESS POSTURE AND BACK CARE 2. IMPROVED GT PATTERN (W/WO CANE) Surface Boss Goals: 1. I HEP WITH DC EX PLAN 2. INCREASED L HIP ABD STRENGTH 1/2-1 MM GRADE 3. DECREASED LBP AT LEAST 50% WITH ADLS 4. Pt ABLE TO WALK AT PARK Treatment Plan: Modalities to reduce pain, spasms and effusion. Manual therapy to restore motion and function. Therapeutic exercise to improve strength and flexibility. Neuromuscular re-education for posture and balance. Therapeutic activities to return to functional activities of daily living. Electronically signed by: JÚNIOR JI PT Please sign and return to therapist. Thank you for your referral.
== END 2024-05-09 08:28 | disposition home or self-care (01) ==
LOC: HO.PTWFD 12:57
PROVIDERS: PCP Internal Medicine; Visit Provider Neurological Surgery
DX: M48.062 Spinal stenosis, lumbar region with neurogenic claudication (principal)
CPT/HCPCS: 97110; 97140; 97162; 97530; 97535